=== PATIENT | female | born 1945 | race Caucasian/White ===

== ENCOUNTER → 2018-01-20 | Outpatient (CLI) | payer OTHER | LOC: M.RAD 10:35 | DX: Z12.31 Encounter for screening mammogram for malignant neoplasm of breast (principal); I70.0 Atherosclerosis of aorta; F17.210 Nicotine dependence, cigarettes, uncomplicated ==

== ENCOUNTER → 2019-01-18 | Outpatient (CLI) | payer OTHER | LOC: M.RAD 09:38 | DX: Z12.31 Encounter for screening mammogram for malignant neoplasm of breast (principal) ==

== ENCOUNTER → 2019-01-23 | Outpatient (CLI) | payer OTHER | LOC: M.RAD 10:35 | DX: J43.2 Centrilobular emphysema (principal) ==

== ENCOUNTER → 2021-10-29 | Outpatient (CLI) | payer OTHER | LOC: M.RAD 10-22 09:11 | PROVIDERS: ATTEND Family Medicine | DX: M47.26 Other spondylosis with radiculopathy, lumbar region (principal); M47.27 Other spondylosis with radiculopathy, lumbosacral region; M46.06 Spinal enthesopathy, lumbar region; M81.0 Age-related osteoporosis without current pathological fracture; M85.89 Other specified disorders of bone density and structure, multiple sites ==